=== PATIENT | female | born 1995 | race Two or more races ===

== ENCOUNTER 2018-09-20 18:41 | Emergency (ER) | payer MEDICAID ==
[~2018-09-20] VITALS: Wt 78.0 kg
[2018-09-20] MEDS ORDERED: ALBUTEROL 0.083% (NEB) 2.5 MG/3 ML AMP HHN STA (21:01)
[2018-09-20] MEDS ORDERED: ALBU8.5H8 INH (21:28)
[2018-09-20] MEDS ORDERED: PRED20TA PO (21:28)
[2018-09-20] MEDS ORDERED: BEN25 PO (21:28)
[2018-09-20] MEDS ORDERED: DIPHENHYDRAMINE 25 MG CAP PO ONE (21:30)
[2018-09-20] MEDS ORDERED: DEXAMETHASONE 10 MG/ML 1 ML INJ IM ONE (21:30)
[2018-09-20] MEDS ORDERED: IPRATROPIUM (NEB) 0.5 MG/2.5 ML AMP HHN ONE (21:30)
--- NOTE | 2018-09-20 21:36 | ERD ---
ER Documentation Chief Complaint Chief Complaint SOB AFTER EXPOSURE TO FRIENDS CAT HPI 23-year-old female presenting with shortness of breath after being exposed to a friend's cat yesterday. Patient has never been around cats before and did not relates she had allergic reaction. She has had no facial swelling or throat closing. She denies any medications for symptoms. Patient states her symptoms have persisted. Denies medical problems. NKDA. Surgical history denies. Social history denies ROS All systems reviewed and are negative except as per history of present illness. Medications Home Meds Active Scripts Prednisone* (Prednisone*) 20 Mg Tab, 40 MG PO DAILY for 4 Days, TAB Prov:DARINEL VENEGAS PA-C 09/20/18 Diphenhydramine Hcl* (Benadryl*) 25 Mg Cap, 25 MG PO Q6, #30 CAP Prov:DARINEL VENEGAS PA-C 09/20/18 Albuterol Sulfate* (Proair HFA*) 8.5 Gm Hfa.aer.ad, 2 PUFF INH Q4, #1 INHALER Prov:DARINEL VENEGAS PA-C 09/20/18 Allergies Allergies: Coded Allergies: No Known Allergy (Unverified , 09/20/18) PMhx/Soc Medical and Surgical Hx: pt denies Medical Hx, pt denies Surgical Hx History of Surgery: No Anesthesia Reaction: No Hx Neurological Disorder: No Hx Respiratory Disorders: No Hx Cardiac Disorders: No Hx Psychiatric Problems: No Hx Miscellaneous Medical Probl: No Hx Alcohol Use: No Hx Substance Use: No Hx Tobacco Use: No Smoking Status: Never smoker FmHx Family History: No diabetes, No coronary disease, No other Physical Exam Vitals Vital Signs Date Temp Pulse Resp B/P (MAP) Pulse Ox O2 O2 Flow FiO2 Time Delivery Rate 09/20/18 85 20 95 21 21:15 09/20/18 98.4 120 22 148/91 97 18:53 (110) Physical Exam GENERAL: The patient is well-appearing, well-nourished, in no acute distress HEENT: Atraumatic. Conjunctivae are pink. Pupils equal, round, and reactive to light. There is no scleral icterus. Tympanic membranes clear bilaterally. Oropharynx clear. CHEST: Clear to auscultation. No focal rhonchi. No retractions. HEART: Regular rate and rhythm. No murmurs, clicks, rubs or gallops. No S3 or S4. Results 24 hrs Current Medications Medications Dose Sig/Linda Start Time Status Last (Trade) Ordered Route PRN Stop Time Admin Dose Reason Admin 10 mg ONCE ONCE 09/20/18 DC 09/20/18 Dexamethasone IM 21:30 21:08 (Decadron) 09/20/18 21:31 Albuterol 5 mg ONCE STAT 09/20/18 DC 09/20/18 (Proventil HHN 21:01 21:14 0.083% (Neb)) 09/20/18 21:03 Ipratropium 0.5 mg ONCE ONCE 09/20/18 DC 09/20/18 Stem HHN 21:30 21:14 (Atrovent 09/20/18 21:31 0.02% (Neb)) 25 mg ONCE ONCE 09/20/18 DC 09/20/18 Diphenhydrami PO 21:30 21:08 ne HCl 09/20/18 21:31 (Benadryl) Procedures/MDM Course: RT consult with albuterol and Atrovent breathing treatment given ED. Decadron given ED. Benadryl given ED. MDM: 23-year-old female presenting with wheezing. I have low suspicion for anaphylaxis patient does have some type breath sounds after being exposed to cat. Patient will be discharged with supportive medications. Patient is told symptoms to return the ER immediately. I do not feel antibiotics are indicated and I do not feel patient requires a chest x-ray as patient has diffuse wheezing her auscultation. She is discharged stricter precautions and told to follow-up with primary care within 1-2 days for close evaluation. All questions answered at discharge Departure Diagnosis: Primary Impression: Allergic reaction Condition: Stable Patient Instructions: Allergic Reaction, Other (General) Referrals: COMM[facility]ITY [facility] YOU HAVE RECEIVED A MEDICAL SCREENING EXAM AND THE RESULTS INDICATE THAT YOU DO NOT HAVE A CONDITION THAT REQUIRES URGENT TREATMENT IN THE EMERGENCY DEPARTMENT. FURTHER EVALUATION AND TREATMENT OF YOUR CONDITION CAN WAIT UNTIL YOU ARE SEEN IN YOUR DOCTORS OFFICE WITHIN THE NEXT 1-2 DAYS. IT IS YOUR RESPONSIBILITY TO MAKE AN APPOINTMENT FOR FOLOW-UP CARE. IF YOU HAVE A PRIMARY DOCTOR --you should call your primary doctor and schedule an appointment IF YOU DO NOT HAVE A PRIMARY DOCTOR YOU CAN CALL OUR PHYSICIAN REFERRAL HOTLINE AT IF YOU CAN NOT AFFORD TO SEE A PHYSICIAN YOU CAN CHOSE FROM THE FOLLOWING [facility] [address] [facility] [address] [facility] [address] [facility] [address] [facility] [phone] [id number] [facility] [facility]. [address] Additional Instructions: FOLLOW UP WITH YOUR PRIMARY CARE PHYSICIAN TOMORROW.Return to this facility if you are not improving as expected. DARINEL VENEGAS PA-C Sep 20, 2018 21:35
[2018-09-20 21:42] VITALS: BP 129/73; PULSE 98; RESP 18
== END 2018-09-20 21:46 | disposition home or self-care (01) ==
LOC: FTE 18:41
DX: R06.02 Shortness of breath (principal)
CPT/HCPCS: 94664; 96372; J1100; Z7502; Z7610

== ENCOUNTER 2018-11-01 18:47 | Emergency (ER) | payer MEDICAID ==
[~2018-11-01] VITALS: Ht 160 cm; Wt 77.5 kg
[~2018-11-01 18:47] MED LIST: ALBU8.5H8 INH; BEN25 PO; PRED20TA PO
[2018-11-01 18:54] VITALS: Ht 160 cm; Wt 77.5 kg
[2018-11-01] MEDS ORDERED: EPINEPHrine 1 MG INJ IM STA (19:02)
[2018-11-01] MEDS ORDERED: DIPHENHYDRAMINE 50 MG INJ IV STA (19:02)
[2018-11-01] MEDS ORDERED: FAMOTIDINE 20 MG INJ IV STA (19:02)
[2018-11-01] MEDS ORDERED: METHYLPREDNISOLONE 125 MG INJ IV STA (19:02)
[2018-11-01] MEDS ORDERED: EPIN0.3P4 INJ (22:36)
[2018-11-01] MEDS ORDERED: PRED20TA PO (22:36)
[2018-11-01] MEDS ORDERED: BEN25 PO (22:36)
[2018-11-01] MEDS ORDERED: FAMO-96 PO (22:36)
[2018-11-01] MEDS ORDERED: ALBUTEROL 0.5% (NEB) 2.5 MG/0.5 ML AMP NEB STA (22:49)
--- NOTE | 2018-11-02 00:40 | ERD ---
ER Documentation Chief Complaint Chief Complaint SOB AND WHEEZING TODAY; STARTED AFTER BEING WITH CAT; RETRACTING HPI 23-year-old female presenting with shortness of breath and wheezing that started today after she was in contact with a friend's cat. This happened a few hours ago but her symptoms progressively worsened. She denies any associated sensation of throat swelling, nausea, vomiting, hives, itching, diarrhea, or abdominal pain. History no recent illnesses. No recent fevers or chills. ROS All systems reviewed and are negative except as per history of present illness. Medications Home Meds Active Scripts Prednisone* (Prednisone*) 20 Mg Tab, 60 MG PO DAILY for 5 Days, TAB Prov:TOREY PORTILLO MD 11/01/18 Famotidine* (Pepcid*) 20 Mg Tablet, 20 MG PO BID for 7 Days, TAB Prov:TOREY PORTILLO MD 11/01/18 Diphenhydramine Hcl* (Benadryl*) 25 Mg Cap, 25 MG PO Q6 PRN for ITCHING/RASH/ALLERGIC REACTION, #30 TAB Prov:TOREY PORTILLO MD 11/01/18 Epinephrine (Epipen 2-Bar) 0.3 Mg/0.3 Ml Pen.injctr, 1 EA INJ ONCE PRN for ALLERGIC REACTION, #1 EA Prov:TOREY PORTILLO MD 11/01/18 Discontinued Scripts Prednisone* (Prednisone*) 20 Mg Tab, 40 MG PO DAILY for 4 Days, TAB Prov:DARINEL VENEGAS PA-C 09/20/18 Diphenhydramine Hcl* (Benadryl*) 25 Mg Cap, 25 MG PO Q6, #30 CAP Prov:DARINEL VENEGAS PA-C 09/20/18 Albuterol Sulfate* (Proair HFA*) 8.5 Gm Hfa.aer.ad, 2 PUFF INH Q4, #1 INHALER Prov:DARINEL VENEGAS PA-C 09/20/18 Allergies Allergies: Coded Allergies: No Known Allergy (Unverified , 09/20/18) PMhx/Soc History of Surgery: No Anesthesia Reaction: No Hx Neurological Disorder: No Hx Respiratory Disorders: No Hx Cardiac Disorders: No Hx Psychiatric Problems: No Hx Miscellaneous Medical Probl: No Hx Alcohol Use: No Hx Substance Use: No Hx Tobacco Use: No Smoking Status: Never smoker FmHx Family History: No diabetes Physical Exam Vitals Vital Signs Date Temp Pulse Resp B/P (MAP) Pulse Ox O2 O2 Flow FiO2 Time Delivery Rate 11/01/18 124 22 129/78 8 Nasal 23:43 (95) Cannula 11/01/18 99 3.0 23:32 11/01/18 111 22 99 Nasal 3.0 23:32 Cannula 11/01/18 114 23 126/86 5 Nasal 21:21 (99) Cannula 11/01/18 119 24 143/88 2 Nasal 20:30 (106) Cannula 11/01/18 119 24 141/113 2 Nasal 20:16 (122) Cannula 11/01/18 113 28 143/56 2 Nasal 19:51 (85) Cannula 11/01/18 139 25 138/98 5 Nasal 19:30 (111) Cannula 11/01/18 138 24 144/97 2 Nasal 19:16 (113) Cannula 11/01/18 Nasal 2 19:00 Cannula 11/01/18 98.8 145 18 160/110 90 18:54 (127) Physical Exam Const: In significant respiratory distress, speaking in very short sentences, sitting up in bed. Head: Atraumatic Eyes: Normal Conjunctiva No periorbital or lid swelling. ENT: Perioral cyanosis. No lip swelling. No oral pharyngeal swelling. No stridor. No drooling. Normal phonation Neck: Full range of motion. No meningismus. No swelling Resp: Tachypneic with retractions. Diminished breath sounds bilaterally with expiratory wheezing Cardio: Tachycardic with regular rhythm, no murmurs Abd: Soft, non tender, non distended. Normal bowel sounds Skin: No petechiae, urticaria, or other rashes Back: No midline or flank tenderness Ext: No cyanosis, or edema Neur: Awake and alert, mentating normally, normal speech, moving all extremities Psych: Normal Mood and Affect Results 24 hrs Current Medications Medications Dose Sig/Linda Start Time Status Last (Trade) Ordered Route PRN Stop Time Admin Dose Reason Admin 50 mg ONCE STAT 11/01/18 DC 11/01/18 Diphenhydrami IV 19:02 19:20 ne HCl 11/01/18 19:04 (Benadryl) Epinephrine 0.3 mg ONCE STAT 11/01/18 DC 11/01/18 IM 19:02 19:20 (EPINEPHrine) 11/01/18 19:04 Famotidine 20 mg ONCE STAT 11/01/18 DC 11/01/18 (Pepcid Iv) IV 19:02 19:21 11/01/18 19:04 125 mg ONCE STAT 11/01/18 DC 11/01/18 Methylprednis IV 19:02 19:21 olone Sodium 11/01/18 19:04 Succinate (Solu-Medrol) Albuterol 10 mg ONCE STAT 11/01/18 DC 11/01/18 (Proventil NEB 22:49 23:31 0.5% (Neb)) 11/01/18 22:50 Procedures/MDM Patient is presenting with wheezing and shortness of breath after being exposed to a cat. She is tachycardic and hypoxic on room air as well as tachypneic. Patient does not have any other symptoms, so technically she does not meet anaphylaxis criteria. However given her distress, epinephrine was given with improvement of her symptoms. She was also treated with IV Benadryl, Pepcid, Solu-Medrol, and later started on treatment with albuterol. I frequently reevaluated the patient and observed her for about 3-1/2 hours. She did have progressive improvement of her symptoms but she continued to have significant wheezing on exam. At the last evaluation, she was still receiving her albuterol treatment. I signed out to the oncoming ED physician, Dr. Rodríguez, who will reevaluate the patient in 1 hour. If any of her symptoms are persistent or not improving as expected, patient will require admission for observation and close respiratory monitoring. Critical Care Time: 45 minutes Treatments/Evaluations: Close monitoring and treatment of unstable vital signs, cardiorespiratory, and neurologic status, while maintaining tight balance of fluid, respiratory, and cardiac interventions. This time includes discussing the case with the patient and the patients family. This time does not include all procedures stated elsewhere in this record. This time also includes reviewing old records, labs and radiological studies. This time includes examining and re- examining the patient. Additionally, this time also includes arranging care with admitting and consulting physicians. Departure Diagnosis: Primary Impression: Anaphylactoid reaction Encounter type: initial encounter Qualified Codes: T78.2XXA - Anaphylactic shock, unspecified, initial encounter Additional Impression: Bronchospasm, acute Condition: Serious Patient Instructions: First Aid: Allergic Reactions, Bronchospasm (Adult) Additional Instructions: Return to the ER for any worsening symptoms. If you have any increasing shortness of breath, make sure you use the EpiPen and then return to the ER. TOREY PORTILLO MD Nov 02, 2018 00:40
[2018-11-02 01:50] VITALS: BP 131/71; PULSE 112; RESP 20
== END 2018-11-02 01:51 | disposition home or self-care (01) ==
LOC: E/R 18:47
DX: T78.2XXA Anaphylactic shock, unspecified, initial encounter (principal); J98.01 Acute bronchospasm
CPT/HCPCS: 94644; 96372; 96374; 96375; J0171; J1200; J2930; Z7502; Z7610